=== PATIENT | male | born 1945 | race Caucasian/White ===

== ENCOUNTER 2016-12-12 17:19 | Inpatient (IN) | payer MEDICARE ==
[~2016-12-12] VITALS: Ht 185.4 cm; Wt 123.3 kg
[2016-12-12] MEDS ORDERED: SODIUM CHLOR 0.9% 1000 ML INJ 1,000 ML IV SCH (17:31)
--- NOTE | 2016-12-12 17:40 | PD ---
HPI Chief Complaint: altered mental status Time Seen by Provider: 17:25 Travel History International Travel<30 days: No Contact w/Intl Traveler<30days: No Traveled to known affect area: No History of Present Illness HPI The patient is a 71-year-old male who presents to the emergency department for chills and altered mental status. The patient is currently visiting from [place], [place], on vacation with his fiance. The patient's fianc states that over the last 2 days the patient has had some mild lethargy and earlier today developed chills. She states the patient went to bed, when she came into the bedroom the patient was shaking. She also states the patient has a somewhat altered mental status. The patient does have a history of diabetes and hypertension. Upon arrival the patient is awake, somewhat lethargic, slow to answer questions and slightly confused. Most of the history is obtained from the patient's fianc. The patient denies any cough, nausea, vomiting, diarrhea, abdominal pain, or dysuria. He does complain of a mild headache. The symptoms are moderate, there are no known alleviating or exacerbating factors. [facility] Past Medical History Narrative Medical Diabetes, hyperlipidemia, hypertension Past Surgical History Surgical History: No Previous Surgery Social History Tobacco Use: No Allergies-Medications (Allergen,Severity, Reaction): Coded Allergies: No Known Allergies (Unverified , 12/12/16) Reported Meds & Prescriptions Reported Meds & Active Scripts Active Reported Aspir-81 (Aspirin) 81 Mg Tabdr Metformin (Metformin HCl) 500 Mg Tab 500 Mg PO BIDPC With meals Escitalopram (Escitalopram Oxalate) 20 Mg Tab 40 Mg PO DAILY Losartan (Losartan Potassium) 100 Mg Tab 100 Mg PO DAILY Januvia (Sitagliptin Phosphate) 100 Mg Tab 100 Mg PO DAILY Lantus Solostar Pen Inj (Insulin Glargine) 300 Unit/3 Ml Pen 3 Ml SQ BID Glimepiride 4 Mg Tab 4 Mg PO DAILY Take with breakfast or first main meal Hydrocodone-Acetaminophen 10-300 Tab 2 Tab PO BID PRN Alprazolam 0.5 Mg Tab 0.5 Mg PO DAILY Pravastatin 80 Mg Tab 80 Mg PO DAILY Doxazosin (Doxazosin Mesylate) 8 Mg Tab 8 Mg PO DAILY Review of Systems Except as stated in HPI: all other systems reviewed are Neg General / Constitutional: Positive: Chills HENT: Positive: Headaches Cardiovascular: No: Chest Pain or Discomfort Respiratory: No: Shortness of Breath Gastrointestinal: No: Nausea, Vomiting, Diarrhea, Abdominal Pain Genitourinary: No: Dysuria Musculoskeletal: No: Myalgias Neurologic: Positive: Headache, Change in Mentation Physical Exam Narrative GENERAL: Awake, somewhat lethargic, 71-year-old male who appears his stated age and is in no acute respiratory distress. SKIN: Focused skin assessment warm/dry. HEAD: Atraumatic. Normocephalic. EYES: Pupils equal and round. Pupils are 3 mm bilateral and reactive. Patient is wearing glasses. ENT: No nasal bleeding or discharge. Slightly dry mucous membranes. NECK: Trachea midline. No JVD. No meningeal signs noted. CARDIOVASCULAR: Regular, tachycardic with a heart rate 115. RESPIRATORY: No accessory muscle use. Clear to auscultation. Breath sounds equal bilaterally. GASTROINTESTINAL: Abdomen soft, non-tender, nondistended. Mildly obese, no rebound tenderness. Genitourinary: Circumcised phallus. Both testicles are descended. No erythema or eschar noted. No evidence of [place]. MUSCULOSKELETAL: Superficial ulcer over the dorsal aspect the left foot but no significant erythema or drainage noted. NEUROLOGICAL: Awake, somewhat lethargic, follow simple commands. He is oriented to month and state, initially stated it was 2046, but then was able to tell me was 2017. PSYCHIATRIC: Slightly confused. Data Data Last Documented VS Vital Signs Date Time Temp Pulse Resp B/P Pulse Ox O2 Delivery O2 Flow Rate FiO2 12/12/16 18:14 101 15 181/81 12/12/16 18:00 100 Room Air 12/12/16 17:53 101.5 Orders Electrocardiogram (12/12/16 17:31) Ammonia (12/12/16 17:31) Complete Blood Count With Diff (12/12/16 17:31) Comprehensive Metabolic Panel (12/12/16 17:31) Creatine Kinase (Cpk) (12/12/16 17:31) Prothrombin Time / Inr (Pt) (12/12/16 17:31) Act Partial Throm Time (Ptt) (12/12/16 17:31) Troponin I (12/12/16 17:31) Thyroid Stimulating Hormone (12/12/16 17:31) Urinalysis - C+S If Indicated (12/12/16 17:31) Lactic Acid Sepsis Protocol (12/12/16 17:31) Blood Culture (12/12/16 17:31) Chest, Single Ap (12/12/16 17:31) Ct Brain W/O Iv Contrast(Rout) (12/12/16 17:31) Blood Glucose (12/12/16 17:31) Ecg Monitoring (12/12/16 17:31) Iv Access Insert/Monitor (12/12/16 17:31) Oximetry (12/12/16 17:31) Sodium Chloride 0.9% Flush (Ns Flush) (12/12/16 17:45) Sodium Chlor 0.9% 1000 Ml Inj (Ns 1000 M (12/12/16 17:31) Alcohol (Ethanol) (12/12/16 17:31) Sodium Chlor 0.9% 1000 Ml Inj (Ns 1000 M (12/12/16 17:45) Labetalol Inj (Trandate Inj) (12/12/16 17:45) Resp Blood Gas Venous (12/12/16 ) Blood Gas Venous (Vbg) (12/12/16 17:42) Ct Abd/Pel W/O Iv Contrast (12/12/16 ) Cefepime Inj (Maxipime Inj) (12/12/16 18:15) Azithromycin Inj (Zithromax Inj) (12/12/16 18:15) Ct Thorax/ Chest Wo Iv Contras (12/12/16 ) Influenzae A/B Antigen (12/12/16 18:46) Admit Order (Ed Use Only) (12/12/16 19:15) Acetaminophen (Tylenol) (12/12/16 19:30) Labs Laboratory Tests Test 12/12/16 12/12/16 12/12/16 17:38 17:42 17:50 White Blood Count 14.3 TH/MM3 Red Blood Count 4.72 MIL/MM3 Hemoglobin 13.7 GM/DL Hematocrit 41.3 % Mean Corpuscular Volume 87.4 FL Mean Corpuscular Hemoglobin 29.0 PG Mean Corpuscular Hemoglobin 33.1 % Concent Red Cell Distribution Width 13.9 % Platelet Count 119 TH/MM3 Mean Platelet Volume 8.9 FL Neutrophils (%) (Auto) 86.3 % Lymphocytes (%) (Auto) 2.2 % Monocytes (%) (Auto) 5.9 % Eosinophils (%) (Auto) 1.9 % Basophils (%) (Auto) 3.7 % Neutrophils # (Auto) 12.4 TH/MM3 Lymphocytes # (Auto) 0.3 TH/MM3 Monocytes # (Auto) 0.8 TH/MM3 Eosinophils # (Auto) 0.3 TH/MM3 Basophils # (Auto) 0.5 TH/MM3 CBC Comment DIFF FINAL Differential Comment Prothrombin Time 11.1 SEC Prothromb Time International 1.0 RATIO Ratio Activated Partial 25.2 SEC Thromboplast Time Sodium Level 136 MEQ/L Potassium Level 4.0 MEQ/L Chloride Level 95 MEQ/L Carbon Dioxide Level 29.8 MEQ/L Anion Gap 11 MEQ/L Blood Urea Nitrogen 45 MG/DL Creatinine 2.20 MG/DL Estimat Glomerular Filtration 29 ML/MIN Rate Random Glucose 302 MG/DL Lactic Acid Level 1.3 mmol/L Calcium Level 9.4 MG/DL Total Bilirubin 0.7 MG/DL Aspartate Amino Transf 22 U/L (AST/SGOT) Alanine Aminotransferase 30 U/L (ALT/SGPT) Alkaline Phosphatase 93 U/L Ammonia 35 MCMOL/L Total Creatine Kinase 152 U/L Troponin I LESS THAN 0.02 NG/ML Total Protein 7.3 GM/DL Albumin 4.1 GM/DL Thyroid Stimulating Hormone 1.070 uIU/ML 3rd Gen Ethyl Alcohol Level LESS THAN 3 MG/DL Blood Gas Puncture Site VENOUS Blood Gas Patient Temperature 98.6 Venous Blood pH 7.46 Venous Blood Partial Pressure 43 mmHg CO2 Venous Blood Partial Pressure 29 mmHg O2 Venous Blood HCO3 30 mmol/L Venous Blood Oxygen Saturation 50 % Venous Blood Oxygen Content 9.5 Vol % Venous Blood Base Excess 6.0 mmol/L Blood Gas Inspired Oxygen 21 % Urine Collection Type CATH Urine Color YELLOW Urine Turbidity CLEAR Urine pH 6.5 Urine Specific [place] 1.010 Urine Protein NEG mg/dL Urine Glucose (UA) 250 mg/dL Urine Ketones NEG mg/dL Urine Occult Blood NEG Urine Nitrite NEG Urine Bilirubin NEG Urine Leukocyte Esterase NEG Urine Renal Epithelial Cells 0-5 /hpf Microscopic Urinalysis Comment CATH-CULT NOT IND Urine Collection Time 17:50 MDM Medical Decision Making Medical Screen Exam Complete: Yes Emergency Medical Condition: Yes Medical Record Reviewed: Yes Interpretation(s) EKG reveals sinus tachycardia with a heart rate of 108. RSR prime in V1 with QRS of 119 ms, incomplete right bundle branch block. Chest x-ray reveals the lungs are clear. Laboratory Tests Test 12/12/16 12/12/16 12/12/16 17:38 17:42 17:50 White Blood Count 14.3 TH/MM3 Red Blood Count 4.72 MIL/MM3 Hemoglobin 13.7 GM/DL Hematocrit 41.3 % Mean Corpuscular Volume 87.4 FL Mean Corpuscular Hemoglobin 29.0 PG Mean Corpuscular Hemoglobin 33.1 % Concent Red Cell Distribution Width 13.9 % Platelet Count 119 TH/MM3 Mean Platelet Volume 8.9 FL Neutrophils (%) (Auto) 86.3 % Lymphocytes (%) (Auto) 2.2 % Monocytes (%) (Auto) 5.9 % Eosinophils (%) (Auto) 1.9 % Basophils (%) (Auto) 3.7 % Neutrophils # (Auto) 12.4 TH/MM3 Lymphocytes # (Auto) 0.3 TH/MM3 Monocytes # (Auto) 0.8 TH/MM3 Eosinophils # (Auto) 0.3 TH/MM3 Basophils # (Auto) 0.5 TH/MM3 CBC Comment DIFF FINAL Differential Comment Prothrombin Time 11.1 SEC Prothromb Time International 1.0 RATIO Ratio Activated Partial 25.2 SEC Thromboplast Time Sodium Level 136 MEQ/L Potassium Level 4.0 MEQ/L Chloride Level 95 MEQ/L Carbon Dioxide Level 29.8 MEQ/L Anion Gap 11 MEQ/L Blood Urea Nitrogen 45 MG/DL Creatinine 2.20 MG/DL Estimat Glomerular Filtration 29 ML/MIN Rate Random Glucose 302 MG/DL Lactic Acid Level 1.3 mmol/L Calcium Level 9.4 MG/DL Total Bilirubin 0.7 MG/DL Aspartate Amino Transf 22 U/L (AST/SGOT) Alanine Aminotransferase 30 U/L (ALT/SGPT) Alkaline Phosphatase 93 U/L Ammonia 35 MCMOL/L Total Creatine Kinase 152 U/L Troponin I LESS THAN 0.02 NG/ML Total Protein 7.3 GM/DL Albumin 4.1 GM/DL Thyroid Stimulating Hormone 1.070 uIU/ML 3rd Gen Ethyl Alcohol Level LESS THAN 3 MG/DL Blood Gas Puncture Site VENOUS Blood Gas Patient Temperature 98.6 Venous Blood pH 7.46 Venous Blood Partial Pressure 43 mmHg CO2 Venous Blood Partial Pressure 29 mmHg O2 Venous Blood HCO3 30 mmol/L Venous Blood Oxygen Saturation 50 % Venous Blood Oxygen Content 9.5 Vol % Venous Blood Base Excess 6.0 mmol/L Blood Gas Inspired Oxygen 21 % Urine Collection Type CATH Urine Color YELLOW Urine Turbidity CLEAR Urine pH 6.5 Urine Specific [place] 1.010 Urine Protein NEG mg/dL Urine Glucose (UA) 250 mg/dL Urine Ketones NEG mg/dL Urine Occult Blood NEG Urine Nitrite NEG Urine Bilirubin NEG Urine Leukocyte Esterase NEG Urine Renal Epithelial Cells 0-5 /hpf Microscopic Urinalysis Comment CATH-CULT NOT IND Urine Collection Time 17:50 CT of the brain reveals mild prominence of the ventricles suggesting central cerebral atrophy or hydrocephalus. Clinical correlation is recommended. No acute infarct, acute hemorrhage, mass effect, or extra-axial fluid collections. CT of the thorax reveals negative CT thorax other than mild bilateral pleural thickening. CT of the abdomen and pelvis reveals moderate size hiatus hernia. 2 low density lesions in the lower pole left kidney cannot be further characterized, both measure less than 2.5 cm. Possible complicated cyst. No evidence of free fluid. Small fat containing bilateral inguinal hernias. Differential Diagnosis Differential diagnosis includes sepsis, delirium, intracranial hemorrhage, hypertensive emergency, pneumonia, complicated urinary tract infection, pyelonephritis, DKA, dehydration, electrolyte abnormality. Narrative Course IV was established, labs are drawn and sent, and the patient was placed on cardiac telemetry monitoring and continuous pulse oximetry monitoring. EKG was ordered and interpreted. Chest x-ray was obtained. CT of the brain was obtained. The patient was administered 1 L normal saline and labetalol 10 mg intravenously. Blood culture and lactic acid were sent to lab. Chest x-ray was unremarkable. UA was negative. Therefore, CT of the thorax and abdomen/ pelvis were ordered to evaluate for fever with no obvious source. The patient has no meningeal signs, I doubt meningitis. Unfortunately the patient's creatinine is elevated at 2.2, therefore, the CTs had to be performed without IV contrast. CT the brain reveals no acute findings, possible mild hydrocephalus. CT of the thorax is unremarkable, no evidence of pneumonia. CT of the abdomen and pelvis reveals hernias, otherwise unremarkable. Influenza was negative. I had a discussion with the patient at 7:06 PM regarding no source of fever. 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 I had a discussion with the patient regarding performing a lumbar puncture to evaluate for possible meningitis. The patient does not want a lumbar puncture performed, he is alert and oriented, he is able to make a competent decision. I did have a discussion with the patient regarding 23 hour observation to the least evaluate for blood culture results and to see if his symptoms improved. The patient was agreeable to admission. Therefore, the on- call medical service was paged for admission. Sepsis Criteria SIRS Criteria (2 or more): Temp > 100.9 or < 96.8, Heart rate over 90, WBC > 81096, < 4000 or > 10% bands Criteria Outcome: Meets SIRS criteria Physician Communication Physician Communication The on-call medical service was paged for 23 hour observation. I discussed the patient with Dr. Hamm who agrees with 23 hour observation. Diagnosis Primary Impression: Febrile illness Additional Impression: SIRS (systemic inflammatory response syndrome) Admitting Information Admitting Physician Requests: Observation Condition: Stable Milo Tipton MD Dec 12, 2016 17:40
[2016-12-12] MEDS ORDERED: SODIUM CHLORIDE 0.9% FLUSH 5 ML FLUSH IV FLUSH PRN (17:45)
[2016-12-12] MEDS ORDERED: SODIUM CHLOR 0.9% 1000 ML INJ 1,000 ML IV ONE (17:45)
[2016-12-12] MEDS ORDERED: LABETALOL HCL 100 MG/20 ML VIAL IV PUSH ONE (17:45)
--- NOTE | 2016-12-12 17:50 | RADRPT ---
EXAM DATE/TIME: 12/12/2016 17:44 [facility] COMPARISON: No previous studies available for comparison. INDICATIONS : Fever MEDICAL HISTORY : None. SURGICAL HISTORY : None. ENCOUNTER: Initial ACUITY: 1 day PAIN SCORE: 0/10 LOCATION: Bilateral chest FINDINGS: A single view of the chest demonstrates the lungs to be symmetrically aerated without evidence of mas s, infiltrate or effusion. The cardiomediastinal contours are unremarkable. Osseous structures are intact. CONCLUSION: The lungs are clear. Tay Lopez MD on December 12, 2016 at 17:48 Board Certified Radiologist. This report was verified electronically.
[2016-12-12 17:51] LABS: BLOOD GAS VENOUS HCO3 30 mmol/L (22-26); BLOOD GAS VENOUS O2 CONTENT 9.5 Vol % (9.0-17.0); BLOOD GAS VENOUS O2 HGB SAT 50 % (70-76); BLOOD GAS VENOUS PCO2 43 mmHg (44-48); BLOOD GAS VENOUS PO2 29 mmHg (35-40); BLOOD GAS VENOUS pH 7.46 (7.360-7.400); CRITICAL VALUE YES; DRAW SITE VENOUS; FIO2 21 %; STAT NO; TEMP CORR TO 98.6
[2016-12-12 17:51] LABS: AUTOMATED NEUTROPHIL # 12.4 TH/MM3 (1.8-7.7); BASOPHIL # 0.5 TH/MM3 (0-0.2); BASOPHIL % 3.7 % (0.0-2.0); EOSINOPHIL # 0.3 TH/MM3 (0-0.4); EOSINOPHIL % 1.9 % (0.0-4.0); HEMATOCRIT 41.3 % (39.0-51.0); LYMPH % 2.2 % (9.0-44.0); LYMPHOCYTE # 0.3 TH/MM3 (1.0-4.8); MEAN CELL VOLUME 87.4 FL (80.0-100.0); MEAN CORPUSCULAR HGB CONC 33.1 % (32.0-36.0); MONO % 5.9 % (0.0-8.0); NEUT % 86.3 % (16.0-70.0); PLATELET COUNT 119 TH/MM3 (150-450); RED BLOOD COUNT 4.72 MIL/MM3 (4.50-5.90); RED CELL DISTRIBUTION WIDTH 13.9 % (11.6-17.2); WHITE BLOOD COUNT 14.3 TH/MM3 (4.0-11.0)
[2016-12-12 17:53] VITALS: BP_SYST 193; BP_SYST 210; BP_DIAS 74; BP_DIAS 85; PULSE 104; PULSE 113; RESP 15; RESP 16; TEMP 101.5; O2SAT 100
[2016-12-12 17:56] LABS: BLOOD, URINE NEG (NEG); GLUCOSE,URINE 250 mg/dL (NEG); KETONE, URINE NEG (NEG); NITRITE,URINE NEG (NEG); PH, URINE 6.5 (5.0-8.5)
[2016-12-12 17:56] LABS: HEMO FLAGS DIFF FINAL
[2016-12-12 18:00] VITALS: O2SAT 100
[2016-12-12 18:01] LABS: METHOD OF COLLECTION CATH; URINE COLOR YELLOW (YELLW/STRAW)
[2016-12-12 18:01] LABS: CHLORIDE 95 MEQ/L (98-107); SODIUM (NA) 136 MEQ/L (136-145)
[2016-12-12 18:02] LABS: COMMENT (UR) CATH-CULT NOT IND; CULTURE IF INDICATED CATH CULTURE NOT IND; RENAL EPITHELIAL CELLS 0-5 /hpf
[2016-12-12 18:05] LABS: ANION GAP 11 MEQ/L (5-15); BICARBONATE 29.8 MEQ/L (21.0-32.0); BLOOD UREA NITROGEN 45 MG/DL (7-18)
[2016-12-12 18:08] LABS: ALT (GPT) 30 U/L (12-78); AST (GOT) 22 U/L (15-37); GLOMERULAR FILTRATION RATE 29 ML/MIN (>89)
[2016-12-12 18:10] LABS: TOTAL BILIRUBIN ADULT 0.7 MG/DL (0.2-1.0)
[2016-12-12 18:11] LABS: ALKALINE PHOSPHATASE 93 U/L (45-117); CREATINE KINASE 152 U/L (39-308)
[2016-12-12 18:14] VITALS: BP 181/81; PULSE 101; RESP 15
[2016-12-12] MEDS ORDERED: CEFEPIME INJ 2,000 MG in SODIUM CHLORIDE 0.9% INJ 100 ML IV ONE (18:15)
[2016-12-12] MEDS ORDERED: AZITHROMYCIN INJ 500 MG in SODIUM CHLOR 0.9% 250 ML INJ 250 ML IV ONE (18:15)
[2016-12-12 18:18] LABS: APTT (PATIENT) 25.2 SEC (24.3-30.1); PROTHROMBIN TIME - PATIENT 11.1 SEC (9.8-11.6)
[2016-12-12] MEDS ORDERED: ALPR0.5T3 PO (18:33)
[2016-12-12] MEDS ORDERED: SITA1TAB2 PO (18:33)
[2016-12-12] MEDS ORDERED: DOXA1TAB43 PO (18:33)
[2016-12-12] MEDS ORDERED: ESCI20TA PO (18:33)
[2016-12-12] MEDS ORDERED: METF500T PO (18:33)
[2016-12-12] MEDS ORDERED: PRAV80TA2 PO (18:33)
[2016-12-12] MEDS ORDERED: LANTINJ SQ (18:33)
[2016-12-12] MEDS ORDERED: HYDR-2374 PO (18:33)
[2016-12-12] MEDS ORDERED: GLIM4TAB PO (18:33)
[2016-12-12] MEDS ORDERED: ASPI81TA81 (18:33)
[2016-12-12] MEDS ORDERED: LOSA100T PO (18:33)
--- NOTE | 2016-12-12 18:53 | RADRPT ---
EXAM DATE/TIME: 12/12/2016 18:16 [facility] COMPARISON: CT THORAX W/O CONTRAST, December 12, 2016, 18:20. INDICATIONS : Altered mental status. RADIATION DOSE: 59.25 CTDIvol (mGy) ; Patient motion MEDICAL HISTORY : None SURGICAL HISTORY : None. ENCOUNTER: Initial ACUITY: 1 day PAIN SCALE: 0/10 LOCATION: cranial TECHNIQUE: Multiple contiguous axial images were obtained of the head. Using automated exposure control and adj ustment of the mA and/or kV according to patient size, radiation dose was kept as low as reasonably a chievable to obtain optimal diagnostic quality images. DICOM format image data is available electro nically for review and comparison. FINDINGS: CEREBRUM: Mild prominence of the ventricles suggesting central cerebral atrophy or hydrocephalus. Clinical valentino elation is recommended. No evidence of midline shift, mass lesion, hemorrhage or acute infarction. N o extra-axial fluid collections are seen. POSTERIOR FOSSA: The cerebellum and brainstem are intact. The 4th ventricle is midline. The cerebellopontine angle i s unremarkable. EXTRACRANIAL: The visualized portion of the orbits is intact. SKULL: The calvaria is intact. No evidence of skull fracture. CONCLUSION: 1. Mild prominence of the ventricles suggesting central cerebral atrophy or hydrocephalus. Clinical c orrelation is recommended. 2. No acute infarct, acute hemorrhage, mass effect or extra-axial fluid collections. Jose Mckeon MD on December 12, 2016 at 18:48 Board Certified Radiologist. This report was verified electronically.
--- NOTE | 2016-12-12 18:57 | RADRPT ---
EXAM DATE/TIME: 12/12/2016 18:20 [facility] COMPARISON: No previous studies available for comparison. INDICATIONS : Fever. RADIATION DOSE: 25.66 CTDIvol (mGy) ; Combined studies - Thorax/Abdomen/Pelvis MEDICAL HISTORY : None SURGICAL HISTORY : None. ENCOUNTER: Initial ACUITY: 1 day PAIN SCALE: 0/10 LOCATION: chest TECHNIQUE: Volumetric scanning of the chest was performed. Using automated exposure control and adjustment of t he mA and/or kV according to patient size, radiation dose was kept as low as reasonably achievable to obtain optimal diagnostic quality images. DICOM format image data is available electronically for r eview and comparison. Follow-up recommendations for incidentally detected pulmonary nodules are based at a minimum on nodul e size and patient risk factors according to Fleischner Society Guidelines. FINDINGS: LUNGS: There is no consolidation or pneumothorax. No concerning pulmonary nodule is visualized. PLEURAE: Minimal bilateral pleural thickening in the mid chest. No evidence of pleural effusion. MEDIASTINUM: The heart and great vessels demonstrate no acute abnormality. There is no mediastinal or hilar lymph adenopathy. AXILLAE: Within normal limits. No lymphadenopathy. MUSCULOSKELETAL: Within normal limits for patient age. MISCELLANEOUS: Prominent hiatus hernia measuring 6 cm. Both adrenal glands have a normal appearance. CONCLUSION: Negative CT thorax other than mild bilateral pleural thickening. Tay Lopez MD on December 12, 2016 at 18:53 Board Certified Radiologist. This report was verified electronically.
--- NOTE | 2016-12-12 19:03 | RADRPT ---
EXAM DATE/TIME: 12/12/2016 18:20 [facility] COMPARISON: No previous studies available for comparison. INDICATIONS : Fever. ORAL CONTRAST: No oral contrast ingested. RADIATION DOSE: 25.66 CTDIvol (mGy) ; Combined studies - Thorax/Abdomen/Pelvis; Patient body habitus MEDICAL HISTORY : None SURGICAL HISTORY : None. ENCOUNTER: Initial ACUITY: 1 day PAIN SCALE: 0/10 LOCATION: abdomen/pelvis TECHNIQUE: Volumetric scanning of the abdomen and pelvis was performed. Using automated exposure control and ad justment of the mA and/or kV according to patient size, radiation dose was kept as low as reasonably achievable to obtain optimal diagnostic quality images. DICOM format image data is available electro nically for review and comparison. FINDINGS: LOWER LUNGS: The visualized lower lungs are clear. Moderate size hiatus hernia measuring 6 cm. LIVER: Homogeneous density without lesion for noncontrast technique. There is no dilation of the biliary tr ee. No calcified gallstones. SPLEEN: Normal size without lesion. PANCREAS: Within normal limits. KIDNEYS: Symmetric renal size. No evidence of mass or hydronephrosis the right kidney. There are 2 low densi ty lesions seen in the lower pole of the left kidney measuring 2.2 cm and 2.4 cm in size, which have a mildly heterogeneous density, CT measurements less than 10 Hounsfield units. There is induration o f the fat in the perirenal space bilaterally. ADRENAL GLANDS: Within normal limits. VASCULAR: There is no aortic aneurysm. Arteriosclerotic calcification. BOWEL/MESENTERY: No dilated loops of small or large bowel. Multiple diverticula in the mid-sigmoid colon without radi ographic evidence of diverticulitis. ABDOMINAL WALL: Within normal limits. RETROPERITONEUM: There is no lymphadenopathy. BLADDER: No wall thickening or mass. REPRODUCTIVE: Within normal limits. INGUINAL: There is no lymphadenopathy. There are small bilateral inguinal hernias containing fat. MUSCULOSKELETAL: Hypertrophic degenerative changes of the posterior elements of the lumbar spine. CONCLUSION: 1. Moderate size hiatus hernia. 2. 2 low density lesions in the lower pole left kidney cannot be further characterized, both measure less than 2.5 cm. Possible complicated cysts. 3. No evidence of free fluid. 4. Small fat-containing bilateral inguinal hernias. Tay Lopez MD on December 12, 2016 at 18:56 Board Certified Radiologist. This report was verified electronically.
[2016-12-12] MEDS ORDERED: ACETAMINOPHEN/HYDROcodone 325 MG/5 MG TAB PO PRN (19:30)
[2016-12-12] MEDS ORDERED: DEXTROSE 50% IN WATER 50 ML VIAL(D50) IV PRN (19:30)
[2016-12-12] MEDS ORDERED: SODIUM CHLORIDE 0.9% FLUSH 10 ML FLUSH IV FLUSH PRN (19:30)
[2016-12-12] MEDS ORDERED: ACETAMINOPHEN 325 MG TAB PO ONE (19:30)
[2016-12-12] MEDS ORDERED: BISACODYL 10 MG SUPP RECTAL PRN (19:30)
[2016-12-12] MEDS ORDERED: ACETAMINOPHEN/HYDROcodone 325 MG/10 MG TAB PO PRN (19:30)
[2016-12-12] MEDS ORDERED: SENNOSIDES 8.6 MG TAB PO PRN (19:30)
[2016-12-12] MEDS ORDERED: GLUCAGON 1 MG/ML VIAL OTHER PRN (19:30)
[2016-12-12] MEDS ORDERED: ACETAMINOPHEN 325 MG TAB PO PRN (19:30)
[2016-12-12] MEDS ORDERED: LACTULOSE SYRUP 20 GM/30 ML CUP PO PRN (19:30)
[2016-12-12] MEDS ORDERED: MAGNESIUM HYDROXIDE SUSP 30 ML CUP PO PRN (19:30)
[2016-12-12] MEDS ORDERED: Vancomycin Consult Pharmacy 1 EA OTHER SCH (19:30)
[2016-12-12] MEDS ORDERED: ONDANSETRON HCL 4 MG/2 ML VIAL IVP PRN (19:30)
[2016-12-12 20:00] VITALS: BP_SYST 143; BP_SYST 169; BP_DIAS 67; BP_DIAS 68; PULSE 102; PULSE 98; RESP 18; TEMP 103.1; TEMP 99.8; O2SAT 94; O2SAT 98
[2016-12-12 21:15] VITALS: PULSE 95
[2016-12-12] MEDS: DOCUSATE SODIUM 50 MG/SENNA 8.6 MG TAB PO SCH (21:22)
[2016-12-12] MEDS: SODIUM CHLORIDE 0.9% FLUSH 10 ML FLUSH IV FLUSH SCH (21:26)
[2016-12-12] MEDS: SODIUM CHLOR 0.9% 1000 ML INJ 1,000 ML IV SCH (21:26)
[2016-12-12] MEDS: INSULIN ASPART SUPPLEMENTAL SCALE SQ SCH (21:29)
[2016-12-12] MEDS: VANCOMYCIN INJ 2,200 MG in SODIUM CHLORID 0.9% 500 ML INJ 500 ML IV SCH (21:57)
[2016-12-12 23:12] VITALS: BP 134/63; PULSE 82; RESP 24; TEMP 99.9; O2SAT 96
[2016-12-13 04:00] VITALS: BP 139/76; PULSE 97; RESP 20; TEMP 99.9; O2SAT 93
[2016-12-13 06:37] LABS: CHLORIDE 101 MEQ/L (98-107); POTASSIUM 3.7 MEQ/L (3.5-5.1); SODIUM (NA) 139 MEQ/L (136-145)
[2016-12-13 06:41] LABS: AUTOMATED NEUTROPHIL # 13.5 TH/MM3 (1.8-7.7); BASOPHIL % 0.2 % (0.0-2.0); EOSINOPHIL % 0.3 % (0.0-4.0); HEMATOCRIT 36.4 % (39.0-51.0); LYMPH % 1.4 % (9.0-44.0); LYMPHOCYTE # 0.2 TH/MM3 (1.0-4.8); MEAN CELL VOLUME 88.5 FL (80.0-100.0); MEAN CORPUSCULAR HEMOGLOBIN 29.7 PG (27.0-34.0); MEAN CORPUSCULAR HGB CONC 33.6 % (32.0-36.0); MONO % 5.2 % (0.0-8.0); NEUT % 92.9 % (16.0-70.0); PLATELET COUNT 94 TH/MM3 (150-450); RED BLOOD COUNT 4.11 MIL/MM3 (4.50-5.90); WHITE BLOOD COUNT 14.4 TH/MM3 (4.0-11.0)
[2016-12-13] MEDS: SODIUM CHLOR 0.9% 1000 ML INJ 1,000 ML IV SCH (06:51)
[2016-12-13 06:52] LABS: HEMO FLAGS AUTO DIFF
[2016-12-13 06:58] LABS: ALKALINE PHOSPHATASE 69 U/L (45-117); ALT (GPT) 22 U/L (12-78); ANION GAP 9 MEQ/L (5-15); AST (GOT) 18 U/L (15-37); BICARBONATE 28.6 MEQ/L (21.0-32.0); BLOOD UREA NITROGEN 44 MG/DL (7-18); GLOMERULAR FILTRATION RATE 31 ML/MIN (>89); TOTAL BILIRUBIN ADULT 0.9 MG/DL (0.2-1.0)
[2016-12-13 07:50] LABS: PLATELET ESTIMATE SMEAR LOW (NORMAL); PLATELET MORPHOLOGY NORMAL (NORMAL); SCAN/DIFF AUTO DIFF CONFIRMED
[2016-12-13 08:00] VITALS: BP 179/70; PULSE 58; PULSE 92; RESP 17; TEMP 98.8; O2SAT 100
[2016-12-13] MEDS: DOCUSATE SODIUM 50 MG/SENNA 8.6 MG TAB PO SCH (08:35)
[2016-12-13] MEDS: ESCITALOPRAM OXALATE 20 MG TAB PO SCH (08:35)
[2016-12-13] MEDS: ALPRAZolam 0.5 MG TAB PO SCH (08:35)
[2016-12-13] MEDS: DOXAZOSIN MESYLATE 4 MG TAB PO SCH (08:35)
[2016-12-13] MEDS: LOSARTAN 50 MG TAB PO SCH (08:35)
[2016-12-13] MEDS: PRAVASTATIN SOD 80 MG TAB PO SCH (08:35)
[2016-12-13] MEDS: INSULIN ASPART SUPPLEMENTAL SCALE SQ SCH ×4 (08:43→20:15)
[2016-12-13] MEDS: SODIUM CHLORIDE 0.9% FLUSH 10 ML FLUSH IV FLUSH SCH ×2 (09:00→20:23)
--- NOTE | 2016-12-13 11:17 | HHI.HP ---
HPI Service [facility] Primary Care Physician Unknown Admission Diagnosis febrile illness, SIRS Diagnoses: Chief Complaint: Altered mental status Travel History International Travel<30 Days: No Contact w/Intl Traveler <30 Da: No Traveled to Known Affected Are: No Sepsis Criteria SIRS Criteria (2 or more): Temp > 100.9 or < 96.8, Heart rate over 90, WBC > 80937, < 4000 or > 10% bands Sepsis Criteria (SIRS+source): Infect source susp/known Severe Sepsis (+one): Acute Oliguria/Renal Failure History of Present Illness Patient is a 70-year-old gentleman with history of diabetes and hypertension who came to the emergency room complaining of altered mental status as per his fiance with whom he is traveling from [place]. The patient says that he uses very sleepy. The fiance said the patient was having chills and shaking and dropping things and unable to complete his sentences. He was sleeping more and not himself and so she urged him to come to the hospital. Here patient was found to be febrile 103.1 temperature as well as elevated blood pressure 210/ 85. He was given antibiotics and Tylenol the symptoms appeared to improve. Patient is known to have a left foot ulceration and was attempting to file down some calluses and cut his foot recently. 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 Patient is now found have bacteremia with persistent fever and evidence of sepsis. There is no pneumonia on x-ray are still clinically and patient's urinalysis unremarkable. Patient's been admitted to the hospital for further treatment of sepsis. Review of Systems Constitutional: COMPLAINS OF: Fatigue, Fever, Chills, Dizziness, Change in appetite, DENIES: Diaphoretic episodes, Weight gain, Weight loss, Night Sweats Eyes: DENIES: Blurred vision, Diplopia, Eye inflammation, Eye pain, Vision loss , Photosensitivity, Double Vision Ears, nose, mouth, throat: DENIES: Tinnitus, Hearing loss, Vertigo, Nasal discharge, Oral lesions, Throat pain, Hoarseness, Ear Pain, Running Nose, Epistaxis, Sinus Pain, Toothache, Odynophagia Respiratory: DENIES: Apneas, Cough, Snoring, Wheezing, Hemoptysis, Sputum production, Shortness of breath Cardiovascular: DENIES: Chest pain, Palpitations, Syncope, Dyspnea on Exertion , PND, Lower Extremity Edema, Orthopnea, Claudication Gastrointestinal: DENIES: Abdominal pain, Black stools, Bloody stools, Constipation, Diarrhea, Nausea, Vomiting, Difficulty Swallowing, Anorexia Genitourinary: DENIES: Sexual dysfunction, Urinary frequency, Urinary incontinence, Urgency, Hematuria, Dysuria, Nocturia, Penile Discharge, Testicular Pain, Testicular Swelling Musculoskeletal: DENIES: Joint pain, Muscle aches, Stiffness, Joint Swelling, Back pain, Neck pain Integumentary: DENIES: Abnormal pigmentation, Nail changes, Pruritus, Rash Hematologic/lymphatic: DENIES: Bruising, Lymphadenopathy Immunologic/allergic: DENIES: Eczema, Urticaria Neurologic: DENIES: Abnormal gait, Headache, Localized weakness, Paresthesias, Seizures, Speech Problems, Tremor, Poor Balance Psychiatric: COMPLAINS OF: Anxiety (at baseline and controlled with home medicines), DENIES: Confusion, Mood changes, Depression, Hallucinations, Agitation, Suicidal Ideation, Homicidal Ideation, Delusions Past Family Social History Past Medical History Diabetes Hypertension Depression Hyperlipidemia Past Surgical History Denies Reported Medications Reviewed in the EMR, no new medicines Allergies: Coded Allergies: No Known Allergies (Unverified , 12/12/16) Active Ordered Medications Reviewed in the EMR Family History Family history is unknown Social History No tobacco or alcohol dependency, visiting from [place], lives with his girlfriend Physical Exam Vital Signs Vital Signs Date Time Temp Pulse Resp B/P Pulse Ox O2 Delivery O2 Flow Rate FiO2 12/13/16 08:00 98.8 58 17 179/70 100 12/13/16 04:00 99.9 97 20 139/76 93 12/12/16 23:12 99.9 82 24 134/63 96 12/12/16 21:15 95 12/12/16 20:00 103.1 102 18 169/67 98 Nasal Cannula 2 12/12/16 20:00 99.8 98 18 143/68 94 12/12/16 18:14 101 15 181/81 12/12/16 18:00 100 Room Air 12/12/16 17:53 104 15 193/74 12/12/16 17:53 101.5 113 16 210/85 100 Physical Exam GENERAL: This is a well-nourished, well-developed patient, in no apparent distress. SKIN: Left foot erythema with several areas of ulceration and eschar on the heel , otherwise No rashes, ecchymoses or lesions. Cool and dry. HEAD: Atraumatic. Normocephalic. No temporal or scalp tenderness. EYES: Pupils equal round and reactive. Extraocular motions intact. No scleral icterus. No injection or drainage. ENT: Nose without bleeding, purulent drainage or septal hematoma. Throat without erythema, tonsillar hypertrophy or exudate. Uvula midline. Airway patent. NECK: Trachea midline. No JVD or lymphadenopathy. Supple, nontender, no meningeal signs. CARDIOVASCULAR: Regular rate and rhythm without murmurs, gallops, or rubs. RESPIRATORY: Clear to auscultation. Breath sounds equal bilaterally. No wheezes , rales, or rhonchi. GASTROINTESTINAL: Abdomen soft, non-tender, nondistended. No hepato-splenomegaly , or palpable masses. No guarding. MUSCULOSKELETAL: Extremities without clubbing, cyanosis, or edema. No joint tenderness, effusion, or edema noted. No calf tenderness. Negative Homans sign bilaterally. NEUROLOGICAL: Awake and alert. Cranial nerves II through XII intact. Motor and sensory grossly within normal limits. Five out of 5 muscle strength in all muscle groups. Normal but slow speech. Laboratory Laboratory Tests Test 12/12/16 12/12/16 12/12/16 12/13/16 17:38 17:42 17:50 05:20 White Blood Count 14.3 14.4 Red Blood Count 4.72 4.11 Hemoglobin 13.7 12.2 Hematocrit 41.3 36.4 Mean Corpuscular Volume 87.4 88.5 Mean Corpuscular Hemoglobin 29.0 29.7 Mean Corpuscular Hemoglobin 33.1 33.6 Concent Red Cell Distribution Width 13.9 14.0 Platelet Count 119 94 Mean Platelet Volume 8.9 9.3 Neutrophils (%) (Auto) 86.3 92.9 Lymphocytes (%) (Auto) 2.2 1.4 Monocytes (%) (Auto) 5.9 5.2 Eosinophils (%) (Auto) 1.9 0.3 Basophils (%) (Auto) 3.7 0.2 Neutrophils # (Auto) 12.4 13.5 Lymphocytes # (Auto) 0.3 0.2 Monocytes # (Auto) 0.8 0.7 Eosinophils # (Auto) 0.3 0.0 Basophils # (Auto) 0.5 0.0 CBC Comment DIFF FINAL AUTO DIFF Differential Comment AUTO DIFF CONFIRMED Prothrombin Time 11.1 Prothromb Time International 1.0 Ratio Activated Partial 25.2 Thromboplast Time Sodium Level 136 139 Potassium Level 4.0 3.7 Chloride Level 95 101 Carbon Dioxide Level 29.8 28.6 Anion Gap 11 9 Blood Urea Nitrogen 45 44 Creatinine 2.20 2.10 Estimat Glomerular Filtration 29 31 Rate Random Glucose 302 203 Lactic Acid Level 1.3 Calcium Level 9.4 8.8 Total Bilirubin 0.7 0.9 Aspartate Amino Transf 22 18 (AST/SGOT) Alanine Aminotransferase 30 22 (ALT/SGPT) Alkaline Phosphatase 93 69 Ammonia 35 Total Creatine Kinase 152 Troponin I LESS THAN 0.02 Total Protein 7.3 6.1 Albumin 4.1 3.2 Thyroid Stimulating Hormone 1.070 3rd Gen Ethyl Alcohol Level LESS THAN 3 Blood Gas Puncture Site VENOUS Blood Gas Patient Temperature 98.6 Venous Blood pH 7.46 Venous Blood Partial Pressure 43 CO2 Venous Blood Partial Pressure 29 O2 Venous Blood HCO3 30 Venous Blood Oxygen Saturation 50 Venous Blood Oxygen Content 9.5 Venous Blood Base Excess 6.0 Blood Gas Inspired Oxygen 21 Urine Collection Type CATH Urine Color YELLOW Urine Turbidity CLEAR Urine pH 6.5 Urine Specific [place] 1.010 Urine Protein NEG Urine Glucose (UA) 250 Urine Ketones NEG Urine Occult Blood NEG Urine Nitrite NEG Urine Bilirubin NEG Urine Leukocyte Esterase NEG Urine Renal Epithelial Cells 0-5 Microscopic Urinalysis Comment CATH-CULT NOT IND Urine Collection Time 17:50 Platelet Estimate LOW Platelet Morphology Comment NORMAL Date/Time Procedure Status Source Growth 12/13/16 04:15 Gram Stain Received Wound Foot Pending 12/13/16 04:15 Wound Culture Received Wound Foot Pending 12/12/16 18:55 Influenza Types A,B Antigen (DANILO) - Final Complete Nasal Aspirate NEGATIVE FOR FLU A AND B ANTIGEN.... 12/12/16 17:43 Aerobic Blood Culture - Preliminary Resulted Blood Peripheral Gram Positive Cocci 12/12/16 17:43 Anaerobic Blood Culture - Preliminary Resulted Gram Positive Cocci Result Diagram: 12/13/16 0520 12/13/16 0520 Imaging Last Impressions Head CT 12/12/161730 Signed Impressions: Service Date/Time: Monday, December 12, 2016 18:16 - CONCLUSION: 1. Mild prominence of the ventricles suggesting central cerebral atrophy or hydrocephalus. Clinical correlation is recommended. 2. No acute infarct, acute hemorrhage, mass effect or extra-axial fluid collections. Jose Mckeon MD Chest X-Ray 12/12/161730 Signed Impressions: Service Date/Time: Monday, December 12, 2016 17:44 - CONCLUSION: The lungs are clear. Tay Lopez MD Chest CT 12/12/16 0000 Signed Impressions: Service Date/Time: Monday, December 12, 2016 18:20 - CONCLUSION: Negative CT thorax other than mild bilateral pleural thickening. Tay Lopez MD Abdomen/Pelvis CT 12/12/16 0000 Signed Impressions: Service Date/Time: Monday, December 12, 2016 18:20 - CONCLUSION: 1. Moderate size hiatus hernia. 2. 2 low density lesions in the lower pole left kidney cannot be further characterized, both measure less than 2.5 cm. Possible complicated cysts. 3. No evidence of free fluid. 4. Small fat-containing bilateral inguinal hernias. Tay Lopez MD Septic Shock Reassessment Heart: Regular rate and rhythm Lungs: Clear Skin: Warm Peripheral Pulses: Bounding Right Radial Bounding Left Radial Bounding Right Popliteal Bounding Left Popliteal Bounding Right Dorsalis Pedis Bounding Left Dorsalis Pedis Bounding Right Posterior Tibial Bounding Left Posterior Tibial Capillary Refill: Brisk Assessment and Plan Problem List: (1) Sepsis ICD Code: A41.9 Status: Acute Plan: May be from the left foot infection, continue vancomycin and cefepime for now, follow-up blood cultures (2) HTN (hypertension) ICD Code: I10 Status: Acute Plan: Currently controlled on losartan and doxazosin (3) DM2 (diabetes mellitus, type 2) ICD Code: E11.9 Status: Acute Plan: Patient on metformin, jenuvia and Amaryl at home, continue sliding scale Hold metformin for now (4) Thrombocytopenia ICD Code: D69.6 Status: Acute Plan: May be due to sepsis, no active bleeding Follow trend Code Status full code Discussed Condition With patient, lance Physician Certification 2 Midnight Certification Type: Admission for Inpatient Services Order for Inpatient Services The services are ordered in accordance with Medicare regulations or non- Medicare payer requirements, as applicable. In the case of services not specified as inpatient-only, they are appropriately provided as inpatient services in accordance with the 2-midnight benchmark. Estimated LOS (days): 3 3 days is the estimated time the patient will need to remain in the hospital, assuming treatment plan goals are met and no additional complications. Post-Hospital Plan: Home Alley Salcido MD Dec 13, 2016 11:17
[2016-12-13 12:00] VITALS: BP 153/79; PULSE 62; RESP 18; TEMP 98.5; O2SAT 96
--- NOTE | 2016-12-13 14:08 | EKG ---
Date Performed: 12/12/2016 Time Performed: 17:46:33 PTAGE: 71 years EKG: SINUS TACHYCARDIA INCOMPLETE RIGHT BUNDLE BRANCH BLOCK LEFT ANTERIOR FASCICULAR BLOCK ABNOR MAL ECG NO PREVIOUS TRACING DOCTOR: Marcial Lema Interpretating Date/Time 12/13/2016 14:05:40
[2016-12-13 16:00] VITALS: BP 186/74; PULSE 65; RESP 17; TEMP 98.7; O2SAT 96
[2016-12-13 20:00] VITALS: BP 167/72; PULSE 67; RESP 18; TEMP 99.1; O2SAT 93
[2016-12-13] MEDS ORDERED: CEFEPIME INJ 1,000 MG in SODIUM CHLORIDE 0.9% INJ 100 ML IV SCH (20:00)
[2016-12-13] MEDS: VANCOMYCIN INJ 2,200 MG in SODIUM CHLORID 0.9% 500 ML INJ 500 ML IV SCH (21:20)
[2016-12-14] VITALS: BP 177/77; PULSE 56; RESP 16; TEMP 98.3; O2SAT 97
[2016-12-14 06:41] LABS: POTASSIUM 3.8 MEQ/L (3.5-5.1)
[2016-12-14 06:53] LABS: BASOPHIL % 0.3 % (0.0-2.0); EOSINOPHIL # 0.3 TH/MM3 (0-0.4); EOSINOPHIL % 4.2 % (0.0-4.0); HEMATOCRIT 33.3 % (39.0-51.0); LYMPH % 9.2 % (9.0-44.0); LYMPHOCYTE # 0.6 TH/MM3 (1.0-4.8); MEAN CELL VOLUME 88.1 FL (80.0-100.0); MEAN CORPUSCULAR HEMOGLOBIN 29.8 PG (27.0-34.0); MEAN CORPUSCULAR HGB CONC 33.8 % (32.0-36.0); MONO % 7.3 % (0.0-8.0); PLATELET COUNT 96 TH/MM3 (150-450); RED BLOOD COUNT 3.78 MIL/MM3 (4.50-5.90); RED CELL DISTRIBUTION WIDTH 13.7 % (11.6-17.2); WHITE BLOOD COUNT 6.4 TH/MM3 (4.0-11.0)
[2016-12-14 06:56] LABS: HEMO FLAGS AUTO DIFF
[2016-12-14 06:58] LABS: BICARBONATE 24.7 MEQ/L (21.0-32.0)
[2016-12-14 07:26] LABS: PLATELET ESTIMATE SMEAR LOW (NORMAL); PLATELET MORPHOLOGY NORMAL (NORMAL); SCAN/DIFF AUTO DIFF CONFIRMED
[2016-12-14 08:00] VITALS: BP 177/90; PULSE 56; RESP 17; TEMP 98; O2SAT 97
[2016-12-14] MEDS: SODIUM CHLORIDE 0.9% FLUSH 10 ML FLUSH IV FLUSH SCH ×2 (08:36→20:50)
[2016-12-14] MEDS: ESCITALOPRAM OXALATE 20 MG TAB PO SCH (09:11)
[2016-12-14] MEDS: LOSARTAN 50 MG TAB PO SCH (09:11)
[2016-12-14] MEDS: PRAVASTATIN SOD 80 MG TAB PO SCH (09:11)
[2016-12-14] MEDS: ALPRAZolam 0.5 MG TAB PO SCH (09:11)
[2016-12-14] MEDS: DOXAZOSIN MESYLATE 4 MG TAB PO SCH (09:11)
[2016-12-14] MEDS: INSULIN ASPART SUPPLEMENTAL SCALE SQ SCH ×4 (09:14→20:49)
[2016-12-14 12:00] VITALS: BP 150/85; PULSE 61; RESP 17; TEMP 98.5; O2SAT 98
[2016-12-14] MEDS ORDERED: cloNIDine HCL 0.1 MG TAB PO PRN (12:00)
--- NOTE | 2016-12-14 12:00 | HHI.PR ---
Subjective Remarks Patient seen and evaluated today in follow-up for sepsis or bacteremia. No further fever, mental status is improved. Discussed with patient and fiancee Objective Vitals Vital Signs Date Time Temp Pulse Resp B/P Pulse Ox O2 Delivery O2 Flow Rate FiO2 12/14/16 08:00 98.0 56 17 177/90 97 12/14/16 00:00 98.3 56 16 177/77 97 12/13/16 20:00 99.1 67 18 167/72 93 12/13/16 16:00 98.7 65 17 186/74 96 12/13/16 12:00 98.5 62 18 153/79 96 I/O 12/13/16 12/13/16 12/13/16 12/14/16 12/14/16 12/14/16 06:59 14:59 22:59 06:59 14:59 22:59 Intake Total 1180 ml 420 ml 2181 ml 1148 ml Output Total 650 ml 1400 ml 400 ml 800 ml Balance 530 ml -980 ml 1781 ml 1148 ml -800 ml Intake Oral 420 ml 840 ml IV Total 1180 ml 1341 ml 1148 ml Output Urine Total 650 ml 1400 ml 400 ml 800 ml # Bowel Movements 0 0 Result Diagram: 12/14/16 0545 12/14/16 0545 Objective Remarks Left foot with inflammatory changes and areas of eschar GENERAL: This is a well-nourished, well-developed patient, in no apparent distress. CARDIOVASCULAR: Regular rate and rhythm without murmurs, gallops, or rubs. RESPIRATORY: Clear to auscultation. Breath sounds equal bilaterally. No wheezes , rales, or rhonchi. GASTROINTESTINAL: Abdomen soft, non-tender, nondistended. Normal active bowel sounds MUSCULOSKELETAL: Extremities without clubbing, cyanosis, or edema. NEURO: Alert & Oriented x4 to person, place, time, situation. Moves all ext x4 A/P Problem List: (1) Sepsis ICD Code: A41.9 Status: Acute Plan: Leukocytosis improved likely due to G B Strep Bacteremia ??? from the left foot infection (patient refuses LP) all cultures not completed but likely the same organism (patient NOT pcn allergic) ID consult pending continue vancomycin and cefepime for now, (2) HTN (hypertension) ICD Code: I10 Status: Acute Plan: Currently elevated on losartan and doxazosin add clonidine prn (3) DM2 (diabetes mellitus, type 2) ICD Code: E11.9 Status: Acute Plan: Patient on metformin, jenuvia and Amaryl at home, continue sliding scale Hold metformin for now add levemir (4) Thrombocytopenia ICD Code: D69.6 Status: Acute Plan: stable May be due to sepsis, no active bleeding Follow trend (5) Metabolic encephalopathy ICD Code: G93.41 Status: Resolved Plan: from sepsis, resolved (6) ROZINA (acute kidney injury) ICD Code: N17.9 Status: Acute Plan: improved with IVF Discharge Planning pending cultures and plan for abx; may need IV abx Alley Salcido MD Dec 14, 2016 12:00
[2016-12-14 16:00] VITALS: BP 174/87; PULSE 79; RESP 18; TEMP 97.4; O2SAT 96
[2016-12-14] MEDS ORDERED: PENICILLIN G SODIUM INJ 2,000,000 UNITS in SODIUM CHLORIDE 0.9% INJ 100 ML IV SCH ×2 (16:30→18:00)
[2016-12-14 16:59] LABS: HEMOGLOBIN A1a 1.1 %; HEMOGLOBIN A1b 2.4 %; HEMOGLOBIN Ao 78.3 %; HEMOGLOBIN LA1C 3.2 %; HEMOGLOBIN P3 5.4 %
--- NOTE | 2016-12-14 17:28 | MB ---
cc: MARIANO GURROLA MD DATE OF CONSULTATION 12/14/[address] Salcido REASON FOR CONSULTATION Bacteremia. HISTORY OF PRESENT ILLNESS This is a 71-year-old white male who was brought to the emergency department on 12/12 with altered mental status in addition to shaking chills. The patient developed sudden onset of shaking chills on the evening prior to being brought to the emergency department. In the emergency department on evaluation he was found to have temperature of 101.5 degrees, heart rate of 101 and white blood cell count was elevated at 14.3. The patient fiance mentioned that his mental status was profoundly altered, at least to a point where he did not know where he was and his responses were markedly diminished. Blood cultures were taken on admission and all four bottles have gram-positive cocci including two bottles identified as group B beta strep. He has a history of diabetes mellitus. He is vacationing in [place] from [place], [place] and he has been there for 2 weeks and has been frequently in the ocean. The patient notes that he was having problems with callus on his left heel and he also had an area of pain at the left plantar aspect at the base of the fifth toe. He took a micro grater and he scraped the callus from the left heel and it caused a bruise. He states that "it went to far in." This was approximately 1 week ago. After admission his temperature was to 103 degrees. An LP was offered to the patient and he refused the LP. CT scan of the head showed mild prominence of the ventricles suggesting central cerebral atrophy or hydrocephalus. Currently, the patient is sitting up in a recliner chair and he seems to be very awake, alert and responsive and his mentation is clear and appropriate. He feels a lot better. His fiance is at bedside and she also thinks that he is a lot better. He denies headache, nausea or vomiting, chest pain, abdominal pain. Urinalysis on admission was unremarkable. Chest x-ray on admission showed clear lungs. CT scan of the thorax showed mild bilateral pleural thickening. PAST MEDICAL HISTORY Diabetes mellitus, hypertension, hyperlipidemia, depression. ALLERGIES NO KNOWN DRUG ALLERGIES. MEDICATIONS 1. Vancomycin. 2. Cefepime. 3. Cozaar. 4. Pravachol. SOCIAL HISTORY No tobacco use. Patient quit smoking cigarettes 25 years ago. Occasional alcohol. No illicit drugs. The patient lives with his girlfriend. FAMILY HISTORY The patient's father had diabetes. REVIEW OF SYSTEMS Pertinent mentioned in the history of present illness, otherwise, negative on 10-point review except for some tiredness currently. PHYSICAL EXAMINATION GENERAL: This is a moderately obese male who is in no acute distress. He is awake and alert and oriented. VITAL SIGNS: Include temperature 98.5, BP 150/85, respirations 17, heart rate 61. HEENT: Head atraumatic. Extraocular movements grossly intact, pupils reactive to light. No icterus. Oropharynx no visible lesions. NECK: Supple without adenopathy or swelling. LUNGS: Clear breath sounds which are diminished throughout. HEART: Regular rate and rhythm. Distant S1-S2. No audible murmurs. ABDOMEN: Bowel sounds present, soft, obese, nontender. RECTAL: Not performed. EXTREMITIES: The left heel has an abrasion with an ulcerated area which is dry. There is visible break in the skin and the underlying tissue appears pink. The patient has an excoriated dry ulcer at the dorsum of foot at the anterior aspect of the ankle. There is also a plantar ulceration at the base of the fifth toe which is flushed with the skin of the plantar surface but there is redness visible at the central aspect of that ulcer. No calf tenderness. No edema. SKIN: No diffuse rash. NEUROLOGIC: Nonfocal. LABORATORY DATA WBC 6.4, platelets 96,000, hemoglobin 11.3, 79% neutrophils, creatinine 1.40, BUN 30, estimated GFR of 50, sodium 138. Liver function tests normal. IMPRESSION 1. Group B strep septicemia. Patient presenting with rigors, fever, tachycardia, altered mental status, increased white blood cell count. Most likely source being the left foot ulceration at the heel where the patient caused an abrasion of the skin from using a micro grater to scrape the a callus at the left heel. The patient appeared to have improved. 2. Acute kidney disease seems to be improving. 3. Altered mental status, improved. RECOMMENDATIONS 1. Repeat blood culture to make sure that there is clearance of the bacteremia. 2. Continue treatment with intravenous penicillin. 3. Await the repeat blood cultures and if there is clearance of the bacteremia and the patient's temperature remains normal consideration can be given to sending him home on oral penicillin to complete 10 days of treatment. Thank you for this consultation. I will monitor the patient's progress and will make further recommendations if necessary. Mariano Gurrola MD FD/CASH /4:02 PM /5:09 PM SELENE
[2016-12-14] MEDS ORDERED: VANCOMYCIN INJ 2,100 MG in SODIUM CHLORID 0.9% 500 ML INJ 500 ML IV SCH (18:00)
[2016-12-14 20:00] VITALS: BP 188/83; PULSE 46; RESP 20; TEMP 96.7; O2SAT 98
[2016-12-14] MEDS ORDERED: INSULIN DETEMIR 100 UNITS/ML VIAL SQ SCH (21:00)
[2016-12-14] MEDS: PENICILLIN G SODIUM INJ 2,000,000 UNITS in SODIUM CHLORIDE 0.9% INJ 100 ML IV SCH ×2 (21:38→23:24)
[2016-12-15] VITALS (7 sets, daily range): BP systolic 150–180; BP diastolic 63–82; PULSE 44–51; RESP 18–20; TEMP 96.4–98.2; O2SAT 95–99
[2016-12-15] MEDS: PENICILLIN G SODIUM INJ 2,000,000 UNITS in SODIUM CHLORIDE 0.9% INJ 100 ML IV SCH ×6 (03:37→23:33)
[2016-12-15] MEDS: LOSARTAN 50 MG TAB PO SCH (09:26)
[2016-12-15] MEDS: PRAVASTATIN SOD 80 MG TAB PO SCH (09:27)
[2016-12-15] MEDS: SODIUM CHLORIDE 0.9% FLUSH 10 ML FLUSH IV FLUSH SCH ×2 (09:28→20:14)
[2016-12-15] MEDS: DOXAZOSIN MESYLATE 4 MG TAB PO SCH (09:34)
[2016-12-15] MEDS: INSULIN ASPART SUPPLEMENTAL SCALE SQ SCH ×4 (09:37→20:22)
--- NOTE | 2016-12-15 11:55 | HHI.PR ---
Subjective Remarks Patient seen today in follow-up for group B strep bacteremia. No new complaints today. Patient's blood sugars quite elevated and hemoglobin A1c is over 9. Hypoactive patient's home medicine list is still incorrect. This was verified with the fianc and the patient. Objective Vitals Vital Signs Date Time Temp Pulse Resp B/P Pulse Ox O2 Delivery O2 Flow Rate FiO2 12/15/16 08:00 96.6 47 18 158/63 98 12/15/16 04:00 96.4 44 18 152/81 95 12/15/16 00:00 96.9 45 20 173/78 97 12/14/16 20:00 96.7 46 20 188/83 98 12/14/16 16:00 97.4 79 18 174/87 96 12/14/16 12:00 98.5 61 17 150/85 98 I/O 12/14/16 12/14/16 12/14/16 12/15/16 12/15/16 12/15/16 07:00 15:00 23:00 07:00 15:00 23:00 Intake Total 1148 ml 420 ml 60 ml Output Total 800 ml 300 ml Balance 1148 ml -800 ml 420 ml -240 ml Intake Oral 220 ml 60 ml IV Total 1148 ml 200 ml Output Urine Total 800 ml 300 ml # Voids 6 2 1 # Bowel Movements 2 1 0 Result Diagram: 12/14/16 0545 12/14/16 0545 Objective Remarks Left foot with inflammatory changes and areas of eschar GENERAL: This is a well-nourished, well-developed patient, in no apparent distress. CARDIOVASCULAR: Regular rate and rhythm without murmurs, gallops, or rubs. RESPIRATORY: Clear to auscultation. Breath sounds equal bilaterally. No wheezes , rales, or rhonchi. GASTROINTESTINAL: Abdomen soft, non-tender, nondistended. Normal active bowel sounds MUSCULOSKELETAL: Extremities without clubbing, cyanosis, or edema. NEURO: Alert & Oriented x4 to person, place, time, situation. Moves all ext x4 A/P Problem List: (1) Sepsis ICD Code: A41.9 Status: Acute Plan: Leukocytosis improved likely due to G B Strep Bacteremia ??? from the left foot infection (patient refuses LP) ID consult appreciated, continue penicillin G (2) HTN (hypertension) ICD Code: I10 Status: Chronic Plan: Currently elevated on losartan and doxazosin Continue clonidine prn (3) DM2 (diabetes mellitus, type 2) ICD Code: E11.9 Status: Chronic Plan: Patient on metformin, jenuvia and Amaryl at home, continue sliding scale Patient apparently takes Lantus twice daily at home for which we will substitute Levemir twice daily. Patient also has requested Tylenol PM and Aleve still with joint pain and insomnia He also has gabapentin for diabetic neuropathy (4) Thrombocytopenia ICD Code: D69.6 Status: Acute Plan: stable May be due to sepsis, no active bleeding Follow trend in am (5) Metabolic encephalopathy ICD Code: G93.41 Status: Resolved Plan: from sepsis, resolved (6) ROZINA (acute kidney injury) ICD Code: N17.9 Status: Resolved Plan: improved with IVF Discharge Planning pending clearance of repeat cultures and plan for PO abx; going back to [place] Alley Salcido MD Dec 15, 2016 11:55
[2016-12-15] MEDS ORDERED: NAPROXEN 250 MG TAB PO PRN (12:00)
[2016-12-15] MEDS ORDERED: diphenhydrAMINE HCL 50 MG CAP PO PRN (12:00)
[2016-12-15] MEDS: GABAPENTIN 300 MG CAP PO SCH (20:14)
[2016-12-15] MEDS: INSULIN DETEMIR 100 UNITS/ML VIAL SQ SCH (20:22)
[2016-12-15] MEDS ORDERED: PHARMACY ORDERED LAB ONE (20:45)
[2016-12-16] VITALS: BP 172/74; PULSE 42; RESP 20; TEMP 96; O2SAT 97
[2016-12-16] MEDS: PENICILLIN G SODIUM INJ 2,000,000 UNITS in SODIUM CHLORIDE 0.9% INJ 100 ML IV SCH ×4 (04:33→16:00)
[2016-12-16 05:31] LABS: AUTOMATED NEUTROPHIL # 3.4 TH/MM3 (1.8-7.7); BASOPHIL % 0.6 % (0.0-2.0); EOSINOPHIL # 0.5 TH/MM3 (0-0.4); EOSINOPHIL % 8.7 % (0.0-4.0); HEMO FLAGS DIFF FINAL; LYMPH % 23.3 % (9.0-44.0); LYMPHOCYTE # 1.3 TH/MM3 (1.0-4.8); MEAN CELL VOLUME 86.3 FL (80.0-100.0); MEAN CORPUSCULAR HEMOGLOBIN 29.1 PG (27.0-34.0); MEAN CORPUSCULAR HGB CONC 33.7 % (32.0-36.0); NEUT % 59.4 % (16.0-70.0); PLATELET COUNT 131 TH/MM3 (150-450); RED BLOOD COUNT 3.94 MIL/MM3 (4.50-5.90); RED CELL DISTRIBUTION WIDTH 13.3 % (11.6-17.2); WHITE BLOOD COUNT 5.7 TH/MM3 (4.0-11.0)
[2016-12-16 05:39] LABS: POTASSIUM 3.8 MEQ/L (3.5-5.1)
[2016-12-16 05:41] LABS: BICARBONATE 26.2 MEQ/L (21.0-32.0)
[2016-12-16 08:00] VITALS: BP 154/69; PULSE 37; RESP 16; TEMP 97; O2SAT 97
[2016-12-16] MEDS: LOSARTAN 50 MG TAB PO SCH (08:35)
[2016-12-16] MEDS: SODIUM CHLORIDE 0.9% FLUSH 10 ML FLUSH IV FLUSH SCH (08:35)
[2016-12-16] MEDS: GABAPENTIN 300 MG CAP PO SCH (08:35)
[2016-12-16] MEDS: PRAVASTATIN SOD 80 MG TAB PO SCH (08:35)
[2016-12-16] MEDS: DOXAZOSIN MESYLATE 4 MG TAB PO SCH (08:35)
[2016-12-16] MEDS: INSULIN DETEMIR 100 UNITS/ML VIAL SQ SCH (08:58)
[2016-12-16] MEDS: INSULIN ASPART SUPPLEMENTAL SCALE SQ SCH ×4 (09:02→16:33)
[2016-12-16 12:00] VITALS: BP 160/70; PULSE 50; RESP 16; TEMP 97.4; O2SAT 96
[2016-12-16] MEDS ORDERED: amLODIPine BESYLATE 5 MG TAB PO SCH (13:15)
--- NOTE | 2016-12-16 15:41 | HHI.DCPOC ---
Discharge Care Plan Diagnosis: (1) Febrile illness (2) Sepsis Goals to Promote Your Health * To prevent worsening of your condition and complications * To maintain your health at the optimal level Directions to Meet Your Goals Take your medications as prescribed Follow your dietary instruction Follow activity as directed Keep your appointments as scheduled Take your immunizations and boosters as scheduled If your symptoms worsen call your PCP, if no PCP go to Urgent Care Center or Emergency Room Smoking is Dangerous to Your Health. Avoid second hand smoke Call the 24-hour hour crisis hotline for domestic abuse at Anupam Samuel Dec 16, 2016 15:41
[2016-12-16] MEDS ORDERED: NEUR300C PO (15:44)
[2016-12-16] MEDS ORDERED: AMLO5 PO (15:44)
[2016-12-16] MEDS ORDERED: PENI500T PO (15:48)
--- NOTE | 2016-12-16 15:52 | HHI.IDPN ---
Note Infectious Disease Note Patient feels okay. sitting up in bedside chair. No chills. Afebrile. Ambulating without difficulty. Admitted with sepsis. PAST MEDICAL HISTORY Diabetes mellitus, hypertension, hyperlipidemia, depression. ALLERGIES NO KNOWN DRUG ALLERGIES. MEDICATIONS Penicillin. OBJECTIVE: Vital Signs Date Time Temp Pulse Resp B/P Pulse Ox O2 Delivery O2 Flow Rate FiO2 12/16/16 12:00 97.4 50 16 160/70 96 12/16/16 08:00 97.0 37 16 154/69 97 12/16/16 00:00 96.0 42 20 172/74 97 12/15/16 21:30 168/70 Automatic Cuff 12/15/16 20:00 97.1 44 20 180/72 99 12/15/16 16:00 98.2 51 18 150/82 97 Laboratory Tests Test 12/16/16 05:10 White Blood Count 5.7 TH/MM3 Red Blood Count 3.94 MIL/MM3 Hemoglobin 11.5 GM/DL Hematocrit 34.0 % Mean Corpuscular Volume 86.3 FL Mean Corpuscular Hemoglobin 29.1 PG Mean Corpuscular Hemoglobin 33.7 % Concent Red Cell Distribution Width 13.3 % Platelet Count 131 TH/MM3 Mean Platelet Volume 8.5 FL Neutrophils (%) (Auto) 59.4 % Lymphocytes (%) (Auto) 23.3 % Monocytes (%) (Auto) 8.0 % Eosinophils (%) (Auto) 8.7 % Basophils (%) (Auto) 0.6 % Neutrophils # (Auto) 3.4 TH/MM3 Lymphocytes # (Auto) 1.3 TH/MM3 Monocytes # (Auto) 0.5 TH/MM3 Eosinophils # (Auto) 0.5 TH/MM3 Basophils # (Auto) 0.0 TH/MM3 CBC Comment DIFF FINAL Differential Comment Laboratory Tests Test 12/16/16 05:10 Sodium Level 136 MEQ/L Potassium Level 3.8 MEQ/L Chloride Level 102 MEQ/L Carbon Dioxide Level 26.2 MEQ/L Anion Gap 8 MEQ/L Blood Urea Nitrogen 29 MG/DL Creatinine 1.30 MG/DL Estimat Glomerular Filtration 54 ML/MIN Rate Random Glucose 279 MG/DL Calcium Level 8.9 MG/DL Microbiology Date/Time Procedure Status Source Growth 12/14/16 18:50 Aerobic Blood Culture - Preliminary Resulted Blood Peripheral NO GROWTH IN 2 DAYS 12/14/16 18:50 Anaerobic Blood Culture - Preliminary Resulted Blood Peripheral NO GROWTH IN 2 DAYS 12/14/16 18:55 Aerobic Blood Culture - Preliminary Resulted Blood Peripheral NO GROWTH IN 2 DAYS 12/14/16 18:55 Anaerobic Blood Culture - Preliminary Resulted Blood Peripheral NO GROWTH IN 2 DAYS PHYSICAL EXAMINATION GENERAL: No acute distress. He is awake and alert and oriented. HEENT: No icterus. Oropharynx no visible lesions. NECK: Supple without adenopathy or swelling. LUNGS: Clear breath sounds. HEART: Regular rate and rhythm. Distant S1-S2. No audible murmurs. ABDOMEN: Bowel sounds present, soft, obese, nontender. EXTREMITIES: The left heel has an abrasion with an ulcerated area which is dry. There is visible break in the skin and the underlying tissue appears pink. There is also a plantar ulceration/callus at the base of the foot at the base ~ 3 inches which is from the 5th toe. No edema. SKIN: No diffuse rash. NEUROLOGIC: Nonfocal. IMPRESSION 1. Group B strep septicemia. Patient presenting with rigors, fever, tachycardia, altered mental status, increased white blood cell count. Most likely source being the left foot ulceration at the heel where the patient caused an abrasion of the skin from using a micro grater to scrape the a callus at the left heel. The patient appeared to have improved. 2. Acute kidney disease. Improving. 3. Altered mental status, improved. Now mentally clear. RECOMMENDATIONS Okay to discharge on PO PCN x 7 days more. Patient will be returning to [facility] and is to follow up with his primary care physician. He was cautioned about proper care of his feet and avoid cutting on his skin and following up with podiatry for the callous on the L. foot. Osman Gurrola MD Dec 16, 2016 15:52
--- NOTE | 2016-12-16 16:03 | HHI.DS ---
Discharge Summary Admission Date Dec 12, 2016 at 19:27 Discharge Date: Dec 16, 2016 Admitting Diagnosis febrile illness, SIRS (1) Sepsis ICD Code: A41.9 (2) HTN (hypertension) ICD Code: I10 Diagnosis: Principal (3) DM2 (diabetes mellitus, type 2) ICD Code: E11.9 Diagnosis: Secondary (4) Thrombocytopenia ICD Code: D69.6 Diagnosis: Principal (5) Metabolic encephalopathy ICD Code: G93.41 Diagnosis: Principal (6) ROZINA (acute kidney injury) ICD Code: N17.9 Diagnosis: Principal Procedures None Brief History - From Admission Patient is a 70-year-old gentleman with history of diabetes and hypertension who came to the emergency room complaining of altered mental status as per his fiance with whom he is traveling from [place]. The patient says that he uses very sleepy. The fiance said the patient was having chills and shaking and dropping things and unable to complete his sentences. He was sleeping more and not himself and so she urged him to come to the hospital. Here patient was found to be febrile 103.1 temperature as well as elevated blood pressure 210/ 85. He was given antibiotics and Tylenol the symptoms appeared to improve. Patient is known to have a left foot ulceration and was attempting to file down some calluses and cut his foot recently. 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 Patient is now found have bacteremia with persistent fever and evidence of sepsis. There is no pneumonia on x-ray are still clinically and patient's urinalysis unremarkable. Patient's been admitted to the hospital for further treatment of sepsis. CBC/BMP: 12/16/16 0510 12/16/16 0510 Significant Findings Laboratory Tests Test 12/14/16 12/16/16 05:45 05:10 Red Blood Count 3.78 MIL/MM3 3.94 MIL/MM3 (4.50-5.90) (4.50-5.90) Hemoglobin 11.3 GM/DL 11.5 GM/DL (13.0-17.0) (13.0-17.0) Hematocrit 33.3 % 34.0 % (39.0-51.0) (39.0-51.0) Platelet Count 96 TH/MM3 131 TH/MM3 (150-450) (150-450) Neutrophils (%) (Auto) 79.0 % (16.0-70.0) Eosinophils (%) (Auto) 4.2 % (0.0-4.0) 8.7 % (0.0-4.0) Lymphocytes # (Auto) 0.6 TH/MM3 (1.0-4.8) Platelet Estimate LOW (NORMAL) Blood Urea Nitrogen 30 MG/DL (7-18) 29 MG/DL (7-18) Creatinine 1.40 MG/DL (0.60-1.30) Estimat Glomerular Filtration 50 ML/MIN (>89) 54 ML/MIN (>89) Rate Random Glucose 248 MG/DL 279 MG/DL (74-106) (74-106) Hemoglobin A1c 9.2 % (4.3-6.0) Eosinophils # (Auto) 0.5 TH/MM3 (0-0.4) Imaging Last Impressions Head CT 12/12/161730 Signed Impressions: Service Date/Time: Monday, December 12, 2016 18:16 - CONCLUSION: 1. Mild prominence of the ventricles suggesting central cerebral atrophy or hydrocephalus. Clinical correlation is recommended. 2. No acute infarct, acute hemorrhage, mass effect or extra-axial fluid collections. Jose Mckeon MD Chest X-Ray 12/12/161730 Signed Impressions: Service Date/Time: Monday, December 12, 2016 17:44 - CONCLUSION: The lungs are clear. Tay Lopez MD Chest CT 12/12/16 0000 Signed Impressions: Service Date/Time: Monday, December 12, 2016 18:20 - CONCLUSION: Negative CT thorax other than mild bilateral pleural thickening. Tay Lopez MD Abdomen/Pelvis CT 12/12/16 0000 Signed Impressions: Service Date/Time: Monday, December 12, 2016 18:20 - CONCLUSION: 1. Moderate size hiatus hernia. 2. 2 low density lesions in the lower pole left kidney cannot be further characterized, both measure less than 2.5 cm. Possible complicated cysts. 3. No evidence of free fluid. 4. Small fat-containing bilateral inguinal hernias. Tay Lopez MD PE at Discharge Left foot : not examined today GENERAL: This is a well-nourished, well-developed patient, sitting up on recliner CARDIOVASCULAR: Regular rate and rhythm without murmurs, gallops, or rubs. RESPIRATORY: Clear to auscultation. Breath sounds equal bilaterally. No wheezes GASTROINTESTINAL: Abdomen soft, nondistended. Non tender Extremities: spontaneously moving all extremities NEURO: Alert & Oriented. Answers questions. Pt update on day of discharge Written by Anupam Samuel, acting as scribe for Dr. Kaplan on 12/16/16 at 15: 57. Doing well. Eager to be discharged, denies any CP/SOB/N/V Hospital Course 70-year-old male who originally presented to the hospital on 12/12/16 because he is been having shaking, chills, fever with change in mental status. Patient was known to have a left foot ulceration has been attempting to file down some calluses on his foot and he cut his foot recently. Patient came to emergency department found to have sepsis. Patient blood cultures did show gram -positive cocci with group B beta strep. Infectious disease was consulted for recommendations. The patient was started on cefepime and later switched to penicillin IV. Follow-up cultures have remained negative after starting of IVs over 48 hours. Patient has been afebrile. He is doing much better at this time. Infection source likely from his foot. Infectious disease indicates patient may be discharged home on Penicillin VK 500 mg every 6 hours for 7 more days. Patient clinically stable this time. Will plan discharge home accordingly Pt Condition on Discharge: Stable Discharge Disposition: Discharge Home Discharge Time: > 30 minutes Discharge Instructions DIET: Follow Instructions for: Heart Healthy Diet Activities you can perform: Regular-No Restrictions Activities to Avoid: Driving for 24 hrs Follow up Referrals: PCP Follow-up - 1 Week New Medications: Penicillin V Potassium (Penicillin V Potassium) 500 Mg Tab 500 MG PO Q6H Infection Days 7 Ref 0 TAB Amlodipine (Norvasc) 5 Mg Tab 10 MG PO DAILY Blood Pressure Management #30 TAB Gabapentin (Neurontin) 300 Mg Cap 300 MG PO BID neuropathy #60 CAP Continued Medications: Aspirin (Aspir-81) 81 Mg Tabdr Doxazosin (Doxazosin) 8 Mg Tab 8 MG PO DAILY #30 Ref 0 TAB Glimepiride (Glimepiride) 4 Mg Tab 4 MG PO DAILY Take with breakfast or first main meal Blood Sugar Management #30 Ref 0 TAB Hydrocodone-Acetaminophen (Hydrocodone-Acetaminophen) 10-300 Tab 2 TAB PO BID PRN PAIN Ref 0 TAB Insulin Glargine Inj (Lantus Solostar Pen Inj) 300 Unit/3 Ml Pen 3 ML SQ BID Blood Sugar Management Ref 0 PEN Losartan (Losartan) 100 Mg Tab 100 MG PO DAILY Blood Pressure Management #30 Ref 0 TAB Metformin (Metformin) 500 Mg Tab 500 MG PO BIDPC With meals Blood Sugar Management #60 Ref 0 TAB Pravastatin (Pravastatin) 80 Mg Tab 80 MG PO DAILY Cholesterol Management #30 Ref 0 TAB Sitagliptin (Januvia) 100 Mg Tab 100 MG PO DAILY Blood Sugar Management #30 Ref 0 TAB Additional Information This note was transcribed by colby Samuel. I, Dr. Maranda Kaplan personally performed the history, physical exam, and medical decision making; and confirmed the accuracy of the information in the transcribed note. Authenticated by Dr. Maranda Kaplan on 12/16/16 at 15:57. Anupam Samuel Dec 16, 2016 16:03 Maranda Kaplan MD Dec 16, 2016 21:39
== END 2016-12-16 17:32 | disposition home or self-care (01) | DRG 871 ==
LOC: PHED 17:19 → PHEDA 19:16 → OBSVTOIN 19:27 → PH3B 20:24
PROVIDERS: ADMIT Hospitalist; ATTEND Hospitalist
DX: A40.1 Sepsis due to streptococcus, group B (principal); G93.41 Metabolic encephalopathy; N17.9 Acute kidney failure, unspecified; E11.40 Type 2 diabetes mellitus with diabetic neuropathy, unspecified; D69.6 Thrombocytopenia, unspecified; L97.429 Non-pressure chronic ulcer of left heel and midfoot with unspecified severity; E78.5 Hyperlipidemia, unspecified; G47.00 Insomnia, unspecified; I10 Essential (primary) hypertension; K44.9 Diaphragmatic hernia without obstruction or gangrene; Z87.891 Personal history of nicotine dependence
CPT/HCPCS: 70450; 71010; 71250; 74176; 80048; 80053; 80307; 81001; 82140; 82550; 82805; 82948; 83036; 83605; 84443; 84484; 85025; 85610; 85730; 86403; 87040; 87070; 87186; 87205; 87804; 93005; 96365; J0456; J0692; J1815; J3370; J7030; J7040; J7050